=== PATIENT | female | born 1960 | race Caucasian/White ===

== ENCOUNTER 2019-05-21 12:11 | Emergency (ER) | payer SELFPAY ==
[2019-05-21] MEDS ORDERED: Ketorolac Tromethamine 60 MG/2 ML VIAL ONE (12:27)
[2019-05-21] MEDS ORDERED: traMADol HCl 50 MG TAB ONE (12:27)
--- NOTE | 2019-05-21 12:57 | CT ---
CT BRAIN WITHOUT CONTRAST: Date: 05/21/19 The ventricles are normal in size with no shift. No intracranial bleeding or extra-axial hematoma see n. There is no sign of mass, edema, or stroke. The skull appears intact. The visible paranasal sinuse s and mastoid air cells are clear. IMPRESSION: No acute intracranial finding. POS: HOME
--- NOTE | 2019-05-21 13:48 | CT ---
CT THORAX WITHOUT CONTRAST: Date: 05/21/[address] of the thorax was done following trauma. The bony thorax appears intact. No fractures of the ribs or vertebra evident. Emphysematous changes a re present in the lungs, but there are no contusions, other infiltrates, nodules, or pleural effusion s. There is no pneumothorax. The heart is normal in size and shows no pericardial effusion around it. There is little to no calcification in the aorta. There is no mediastinal mass, hematoma, or adenopa thy. IMPRESSION: No acute traumatic findings. Findings called to Samantha in the ER at 1319 hours on 05/21/19. CODE CR. POS: HOME
== END 2019-05-21 13:48 | disposition home or self-care (01) ==
LOC: BURERS 12:11
DX: S20.212A Contusion of left front wall of thorax, initial encounter (principal); F17.210 Nicotine dependence, cigarettes, uncomplicated; W19.XXXA Unspecified fall, initial encounter
CPT/HCPCS: 70450; 71250; 96372; J1885

== ENCOUNTER 2019-06-09 14:34 | Outpatient (CLI) | payer OTHER ==
--- NOTE | 2019-06-12 07:26 | RAD ---
CERVICAL SPINE 5 VIEWS: HISTORY: Cervical radiculopathy. FINDINGS: Cervical vertebrae maintain height and alignment. There are mild to moderate degenerative changes of the mid cervical spine. Mild loss of disk space noted at C4-5 and C5-6. There are moderate anterio r osteophytes at these levels and mild posterior spondylosis at these levels. Mild foraminal narrowi ng at C5-6 due to uncinate hypertrophy. IMPRESSION: There are mild to moderate degenerative changes at C5-6 and C6-7 as described. POS: [facility]
--- NOTE | 2019-06-12 07:28 | RAD ---
EXAM: Left Rib series HISTORY: Rib pain COMPARISON: None FINDINGS: Multiple views of the left ribs shows a minimally displaced fracture of the lateral ninth rib. No und erlying pleural thickening or pneumothorax are seen. IMPRESSION: Left ninth rib fracture
== END 2019-06-09 14:35 | disposition home or self-care (01) ==
LOC: BURRAD 14:34
PROVIDERS: ATTEND Family Medicine
DX: M54.12 Radiculopathy, cervical region (principal); R07.81 Pleurodynia; S22.32XA Fracture of one rib, left side, initial encounter for closed fracture; M47.812 Spondylosis without myelopathy or radiculopathy, cervical region
CPT/HCPCS: 72050

== ENCOUNTER 2021-07-10 11:11 | Emergency (ER) | payer SELFPAY ==
[2021-07-10] MEDS ORDERED: Iopamidol 370 76% 100 ML VIAL FS ONE (11:12)
[2021-07-10] MEDS ORDERED: Fentanyl 100 MCG/2 ML VIAL ONE (11:50)
[2021-07-10 11:52] LABS: #Basophils 0.1 thou/uL (0.0-0.2); #Eosinphils 0.1 thou/uL (0.0-0.7); #Lymphocytes 2.3 thou/uL (1.20-3.40); #Monocytes 0.7 thou/uL (0.11-0.59); %Basophils 1.4 % (0.0-1.0); %Eosinophils 0.9 % (0.0-10.0); %Lymphocytes 24.7 % (21.0-51.0); %Monocytes 7.3 % (0.0-10.0); %Neutrophils 65.7 % (42.0-75.0); Mean Corpuscular HGB CONC 33.1 g/dL (32.0-36.0); Mean Corpuscular Hemoglobin 34.5 pg (27.0-31.0); Mean Platelet Volume 7.9 fL (7.4-10.4); Platelet Count 295 thou/uL (130-400); RBC Distribution Width 12.9 % (11.5-14.5); Red Blood Cell (RBC) Count 4.65 mill/uL (4.20-5.40); White Blood Cell (WBC) Count 9.1 thou/uL (4.8-10.8)
[2021-07-10 12:09] LABS: ALT (SGPT) 23 U/L (8-55); AST (SGOT) 31 U/L (5-34); Albumin 4.2 g/dL (3.5-5.0); Alkaline Phosphatase 104 U/L (40-110); Anion Gap 12 mmol/L (10-20); BUN (Urea Nitrogen) 12 mg/dL (9.8-20.1); Bilirubin, Total 0.6 mg/dL (0.2-1.2); Calc. Creatinine Clearance 0 mL/min (70-130); Calcium 10.1 mg/dL (7.8-10.44); Carbon Dioxide 26 mmol/L (22-29); Chloride 102 mmol/L (98-107); Glucose 103 mg/dL (70-105); Lipase 26 U/L (8-78); Potassium 4.2 mmol/L (3.5-5.1); Protein, Total 7.2 g/dL (6.0-8.3); Sodium 136 mmol/L (136-145)
[2021-07-10 12:14] LABS: MDiff Complete? YES; Macrocytosis SLIGHT = 6-15 cells (100X) (0-5/hpf); Platelet Morphology Comment Appears Adequate
== END 2021-07-10 13:19 | disposition home or self-care (01) ==
LOC: BURERS 11:11
DX: S29.011A Strain of muscle and tendon of front wall of thorax, initial encounter (principal); J18.9 Pneumonia, unspecified organism; J44.9 Chronic obstructive pulmonary disease, unspecified; I10 Essential (primary) hypertension; F17.210 Nicotine dependence, cigarettes, uncomplicated; X58.XXXA Exposure to other specified factors, initial encounter
CPT/HCPCS: 36415; 71275; 74177; 80053; 83605; 83690; 84484; 85025; 93005; 96374; J3010; Q9967

== ENCOUNTER 2021-11-11 10:03 | Emergency (ER) | payer MEDICAID ==
[2021-11-11] MEDS ORDERED: Morphine 4 MG/ML VIAL ONE (10:34)
[2021-11-11] MEDS ORDERED: Dexamethasone 4 mg/ml Vial ONE (10:34)
[2021-11-11] MEDS ORDERED: Dexamethasone 10 MG/ML VIAL ONE (10:35)
[2021-11-11] MEDS ORDERED: Ondansetron ODT 4 MG TAB ONE (10:50)
== END 2021-11-11 11:15 | disposition home or self-care (01) ==
LOC: BURERS 10:03
DX: M54.6 Pain in thoracic spine (principal); I10 Essential (primary) hypertension; J44.9 Chronic obstructive pulmonary disease, unspecified; F17.210 Nicotine dependence, cigarettes, uncomplicated
CPT/HCPCS: 96372; 96374; J1100; J2270; Q0162

== ENCOUNTER 2021-11-25 13:30 | Outpatient (CLI) | payer MEDICAID | END 2021-11-25 13:31 | disposition home or self-care (01) | LOC: BURRAD 13:30 | PROVIDERS: ATTEND Family Medicine | DX: M54.6 Pain in thoracic spine (principal); G95.20 Unspecified cord compression | CPT/HCPCS: 72072 ==

== ENCOUNTER 2022-12-24 10:43 | Outpatient (CLI) | payer OTHER | END 2022-12-24 10:44 | disposition home or self-care (01) | LOC: BURRAD 10:43 | PROVIDERS: ATTEND Family Medicine | DX: R06.02 Shortness of breath (principal); R63.4 Abnormal weight loss; J43.9 Emphysema, unspecified; R91.8 Other nonspecific abnormal finding of lung field | CPT/HCPCS: 71046 ==